=== PATIENT | female | born 1970 | race Caucasian/White ===

== ENCOUNTER 2021-08-18 10:16 | Emergency (ER) | payer OTHER ==
[~2021-08-18] VITALS: Ht 165.1 cm; Wt 72.3 kg
[2021-08-18 10:41] LABS: BASO # 0.1 10^3/uL (0.0-0.2); BASO % 0.8 % (0.0-1.0); EOS # 0.1 10^3/uL (0.0-0.5); EOS % 1.7 % (0.0-3.0); HEMATOCRIT 42.1 % (36.0-47.0); HEMOGLOBIN 13.9 g/dl (12.0-15.5); LYMPH # 2.2 10^3/uL (1.5-5.0); LYMPH % 34.7 % (24.0-44.0); MEAN CORPUSCULAR HEMOGLOBIN 29.6 pg (27.0-33.0); MEAN CORPUSCULAR VOLUME 89.8 fl (80.0-96.0); MONO # 0.5 10^3/uL (0.0-0.8); MONO % 7.9 % (2.0-8.0); NEUTROPHILS # 3.5 10^3/uL (1.5-8.5); NEUTROPHILS % 54.6 % (36.0-66.0); PLATELET COUNT, AUTOMATED 383 10^3/uL (150-450); RED BLOOD COUNT 4.69 10^6/uL (4.00-5.40); WHITE BLOOD COUNT 6.3 10^3/uL (4.0-10.0)
[2021-08-18] MEDS ORDERED: ASPIRIN 81 MG CHEW TABLET PO ONE (11:10)
--- NOTE | 2021-08-18 11:10 | REP ---
INDICATION: CHEST PAIN. COMPARISON: None. TECHNIQUE: PA and lateral FINDINGS: The superior mediastinal structures are midline. The cardiac silhouette is unremarkable in size, shape, and position. The diaphragmatic surfaces of the lungs are regular, and the costophrenic angles are clear. The pulmonary lombardo are clear. The imaged osseous structures are intact. IMPRESSION: There is no acute cardiopulmonary disease. <Electronically signed by Marcus Cornell > 08/18/21 1100
[2021-08-18 11:22] LABS: ALBUMIN 3.6 GM/DL (3.2-5.2); ALT/SGPT 31 U/L (12-78); BILIRUBIN,DIRECT 0.2 MG/DL (0.0-0.2); BILIRUBIN,TOTAL 0.6 MG/DL (0.2-1.0); BLOOD UREA NITROGEN 8 MG/DL (7-18); CALCIUM LEVEL 8.8 MG/DL (8.5-10.1); CARBON DIOXIDE LEVEL 26 MEQ/L (21-32); CHLORIDE LEVEL 109 MEQ/L (98-107); CK-MB VALUE MASS 1.2 NG/ML (<3.6); CPK CREATINE PHOSPHOKINASE 43 U/L (26-192); CREATININE FOR GFR 0.77 MG/DL (0.55-1.30); FREE T4 0.86 NG/DL (0.76-1.46); GLOMERULAR FILTRATION RATE > 60.0 (>51); GLUCOSE, FASTING 129 MG/DL (70-100); LIPASE 115 U/L (73-393); MB/CK RELATIVE INDEX 2.79 (< OR =4); POTASSIUM SERUM 3.6 MEQ/L (3.5-5.1); SODIUM LEVEL 140 MEQ/L (136-145); TOTAL PROTEIN 6.9 GM/DL (6.4-8.2); TROPONIN I < 0.02 NG/ML (< 0.10)
[2021-08-18 16:55] LABS: CK-MB VALUE MASS < 1.0 NG/ML (<3.6); CPK CREATINE PHOSPHOKINASE 38 U/L (26-192); MB/CK RELATIVE INDEX 2.63 (< OR =4); TROPONIN I < 0.02 NG/ML (< 0.10)
[2021-08-18 17:00] VITALS: BP 131/78
--- NOTE | 2021-08-19 05:53 | ECGEPIP ---
[facility] - ED Test Date: 2021-08-18 Pat Name: ALEXSANDRA CHRISTIE Department: Room: - Gender: Female Health/Safety Job Titles: LEYDA : 1970 Requested By: JAYLON [place] Order Number: [id number] Reading MD: Bradley Medina Measurements Intervals [place] Rate: 81 P: 38 [place]: 140 QRS: 11 QRSD: 84 T: 22 QT: 396 QTc: 460 Interpretive Statements Normal sinus rhythm NONSPECIFIC T WAVE ABNORMALITY(S) NO PRIORS FOR COMPARISON Electronically Signed on 08-19-2021 5:53:10 EDT by Bradley Medina
--- NOTE | 2021-08-19 05:57 | ECGEPIP ---
[facility] - ED Test Date: 2021-08-18 Pat Name: ALEXSANDRA CHRISTIE Department: Room: - Gender: Female [employer]: LEYDA : 1970 Requested By: JAYLON Ocampo Order Number: [id number] Reading MD: Bradley Medina Measurements Intervals [place] Rate: 61 P: 26 [place]: 140 QRS: 9 QRSD: 80 T: 16 QT: 418 QTc: 420 Interpretive Statements Normal sinus rhythm NONSPECIFIC T WAVE ABNORMALITY(S) SIMILAR TO PRIOR ON SAME DATE Electronically Signed on 08-19-2021 5:56:58 EDT by Bradley Medina
== END 2021-08-18 17:27 | disposition home or self-care (01) ==
LOC: M ED 10:16
DX: R07.9 Chest pain, unspecified (principal); Z88.1 Allergy status to other antibiotic agents